=== PATIENT | female | born 1950 | race African-American/Black ===

== ENCOUNTER 2017-02-28 06:38 | Day surgery (SDC) | payer BC ==
[~2017-02-28] VITALS: Ht 175.3 cm; Wt 111.7 kg
[2017-02-28 07:28] VITALS: Ht 175.3 cm; Wt 111.7 kg
[2017-02-28 07:38] VITALS: BP 146/75; PULSE 79; RESP 19
[2017-02-28] MEDS ORDERED: IBUP-1542 PO (07:44)
[2017-02-28] MEDS ORDERED: LIDOCAINE 2% (SDV) 5 ML INJ ONE (08:35)
[2017-02-28] MEDS ORDERED: PROPOFOL 40 ML ONE (08:35)
--- NOTE | 2017-02-28 09:07 | OPPN ---
Date/Time of Note Date/Time of Note DATE: 02/28/17 TIME: 09:06 Proc Note GI Procedure Date 02/28/17 Indication: screening/surveillance Pre-procedure Diagnosis Colon polyp Post-procedure Diagnosis Colon polyp reminded him successfully removed by cold jumbo biopsy forceps Procedure Performed: Colonoscopy Surgeon see signature line Business Services Coordinator none Anesthesia Type: MAC Tourniquet Time none EBL none Transfusion required none Biopsy 1: Diminutive polyp successfully removed Grafts/Implants none Tubes/Drains none Complication(s) none Disposition: home Procedure Description See dictated report AMAYA FERGUSON MD Feb 28, 2017 09:07
[2017-02-28 09:29] VITALS: BP 130/67; RESP 20
--- NOTE | 2017-02-28 10:25 | GILP ---
DATE OF PROCEDURE: PROCEDURE PERFORMED: Colonoscopy with biopsy. INDICATION: A 66-year-old female undergoing this procedure for surveillance of colon polyp. The ri sk of the procedure, related and unrelated complications, anesthetic risks, alternatives discussed a nd informed consent was obtained. DESCRIPTION OF PROCEDURE: The patient was brought to the GI lab, sedated by Dr. Brice, anesthesio logist. After optimal sedation, scope was passed with much ease into rectum and advanced slowly all the way into the cecum. Appendiceal orifice and IC valve identified. The rest of the colon appear ed normal. While coming out, mucosa thoroughly inspected. There was a diminutive polyp in the transverse colon successfully removed by jumbo biopsy forceps. The patient had diverticulosis of moderate degree in the left side of the colon, external hemorrhoids identified. Digital examination was normal. IMPRESSION: 1. Normal findings all the way into the cecum. 2. Diverticulosis, left side of the colon. 3. AVM in the rectum. 4. Polyp successfully removed from the transverse colon. It was diminutive. PLAN: Review the histopathology of the polyp, the patient should be on high fiber diet. Based on t he histopathology we will decide regarding the surveillance colonoscopy. Dictated By: AMAYA THRASHER/OUSMANE Conf#: [id number] DID#: [id number]
== END 2017-02-28 10:32 | disposition home or self-care (01) ==
LOC: GIL 06:38
PROVIDERS: ATTEND Internal Medicine Gastroenterology
DX: D12.3 Benign neoplasm of transverse colon (principal); K57.90 Diverticulosis of intestine, part unspecified, without perforation or abscess without bleeding; E66.01 Morbid (severe) obesity due to excess calories; Z68.36 Body mass index [BMI] 36.0-36.9, adult
CPT/HCPCS: 45380; 88305; Z7610